=== PATIENT | male | born 1970 | race Caucasian/White ===

== ENCOUNTER 2019-01-10 17:06 | Emergency (ER) | payer BC ==
[2019-01-10 17:39] VITALS: BP 136/85; PULSE 98; RESP 18; TEMP 97.5
--- NOTE | 2019-01-10 18:45 | ED ---
General Adult HPI - General Chief complaint: Recheck/Abnormal Lab/Rx Stated complaint: Infection legs/arms Time Seen by Provider: 01/10/19 18:18 Source: patient Mode of arrival: ambulatory Limitations: no limitations - History of Present Illness Initial comments: Patient is a 48-year-old male presenting to the emergency department with chief complaint of a rash. He states approximately 4 months ago he developed a rash on his left calf and went to the primary care who diagnosed with a staph infection based on a wound culture. He was prescribed Bactroban, topical steroid and Bactrim. Patient reports the infection quickly resolved specialist and oral antibiotics. Patient reports sometime after he also developed the same rash which has been gradually spreading throughout his whole body. Patient reports now he has a rash on the left calf back, chest, abdomen bilateral upper extremities. He states initially there was a rash on his genitals however it is since resolved. Patient also reports the rash was on his face but that appears to resolve now too. Patient denies any nausea vomiting fever or chills. He states all his vaccinations are up-to-date. He states the lesions are only itchy and nonpainful nondraining. - Related Data Previous Rx's Medication Instructions Recorded Clotrimazole/Betameth Cream 1 applic TOPICAL BID #1 bottle 01/10/19 [Lotrisone] Mupirocin Calcium 2% Cream 1 applic TOPICAL TID #15 gm 01/10/19 [Bactroban Cream] Sulfamethox-Tmp 800-160Mg [Bactrim 1 each PO Q12HR #20 tab 01/10/19 Ds] Allergies Allergy/AdvReac Type Severity Reaction Status Date / Time No Known Allergies Allergy Verified 01/10/19 17:39 Review of Systems ROS Statement: Those systems with pertinent positive or pertinent negative responses have been documented in the HPI. ROS Other: All systems not noted in ROS Statement are negative. Past Medical History Additional Past Medical History / Comment(s): reynault's, carpal tunnel History of Any Multi-Drug Resistant Organisms: None Reported Past Surgical History: Orthopedic Surgery Past Psychological History: No Psychological Hx Reported Smoking Status: Current every day smoker Past Alcohol Use History: Daily, Heavy Past Drug Use History: None Reported General Exam Limitations: no limitations General appearance: alert, in no apparent distress Head exam: Present: atraumatic, normocephalic, normal inspection Eye exam: Present: normal appearance Pupils: Present: normal accommodation ENT exam: Present: normal exam, mucous membranes moist Neck exam: Present: normal inspection, full ROM Respiratory exam: Present: normal lung sounds bilaterally Cardiovascular Exam: Present: regular rate, normal rhythm, normal heart sounds Extremities exam: Present: normal inspection, full ROM Back exam: Present: normal inspection, full ROM Neurological exam: Present: alert, oriented X3 Psychiatric exam: Present: normal affect, normal mood Skin exam: Present: warm, dry, intact, normal color, rash (Papular rash with mild surrounding erythema and excoriations. No drainage. No cellulitic changes.) Course Vital Signs 01/10/19 17:35 Temperature 97.5 F L Pulse Rate 98 Respiratory 18 Rate Blood Pressure 136/85 O2 Sat by Pulse 98 Oximetry Medical Decision Making - Medical Decision Making Patient is a 48-year-old male presenting to the emergency department with a chief complaint of a rash. Based on physical examination this appears to be a sporadic papular rash with excoriations on multiple places throughout the body. No cellulitic changes or drainage noted. Considering the patient responded well to Bactrim last time he will be treated again. Patient also given a prescription for Bactroban and topical steroid. Patient advised to follow-up with dermatology considering this is a recurrent issue. Strict return parameters were thoroughly discussed with patient was understanding and agreeable. Vital stable. No fevers night sweats or chills. Case discussed with physician. Disposition Clinical Impression: Staphylococcal infection of skin Disposition: HOME SELF-CARE Condition: Stable Instructions (If sedation given, give patient instructions): MRSA (Methicillin- Resistant Staphylococcus Aureus) (ED) Prescriptions: Sulfamethox-Tmp 800-160Mg [Bactrim Ds] 1 each PO Q12HR #20 tab Mupirocin Calcium 2% Cream [Bactroban Cream] 1 applic TOPICAL TID #15 gm Clotrimazole/Betameth Cream [Lotrisone] 1 applic TOPICAL BID #1 bottle Is patient prescribed a controlled substance at d/c from ED?: No Referrals: Gema Jeffers DO [Primary Care Provider] - 1-2 days Time of Disposition: 18:54
== END 2019-01-10 19:06 | disposition home or self-care (01) ==
LOC: EC 17:06
DX: L08.9 Local infection of the skin and subcutaneous tissue, unspecified (principal); B95.8 Unspecified staphylococcus as the cause of diseases classified elsewhere; F17.200 Nicotine dependence, unspecified, uncomplicated
CPT/HCPCS: 99283

== ENCOUNTER 2019-06-15 18:47 | Emergency (ER) | payer BC, OTHER ==
[2019-06-15 18:56] VITALS: RESP 18; TEMP 98.8
--- NOTE | 2019-06-15 19:05 | ED ---
Extremity Problem HPI - General Source: patient, EMS Mode of arrival: EMS <Fabio Angulo - Last Filed: 06/15/19 19:44> <Sebastian Reese - Last Filed: 06/15/19 20:45> - General Chief complaint: Extremity Problem,Nontraumatic Stated complaint: Generalized pain Time Seen by Provider: 06/15/19 18:50 - History of Present Illness Initial comments: Patient is a 48-year-old male with history of alcohol abuse presenting to the emergency department with a chief complaint of pain. Patient states he typically drinks about 60 beers daily. States today he only had one beer and one mixed drink. Patient reports today she "fell on his butt twice". Denies any head trauma or loss of consciousness at time of incident. States about 3 months ago he suffered an ankle sprain with right ankle and since has developed pain in the region along with numbness. Subsequently he developed left shoulder pain and states "she can't fully move the shoulder due to a rotator cuff tear". Does report occasional left arm numbness states that has been present for the past 3 months as well. Does report occasional diarrhea and vomiting. Denies any neck pain or headaches. (Fabio Angulo) - Related Data Home Medications Medication Instructions Recorded Confirmed Acetaminophen/Diphenhydramine 2 tab PO HS 06/15/19 06/15/19 [Tylenol PM 500-25mg] Allergies Allergy/AdvReac Type Severity Reaction Status Date / Time No Known Allergies Allergy Verified 06/15/19 20:29 Review of Systems ROS Other: All systems not noted in ROS Statement are negative. <Fabio Angulo - Last Filed: 06/15/19 19:44> ROS Other: All systems not noted in ROS Statement are negative. <Sbeastian Reese - Last Filed: 06/15/19 20:45> ROS Statement: Those systems with pertinent positive or pertinent negative responses have been documented in the HPI. Past Medical History Additional Past Medical History / Comment(s): reynclaudia's, carpal tunnel History of Any Multi-Drug Resistant Organisms: None Reported Past Surgical History: Orthopedic Surgery Past Psychological History: No Psychological Hx Reported Smoking Status: Current every day smoker Past Alcohol Use History: Daily, Heavy Past Drug Use History: None Reported <Fabio Angulo - Last Filed: 06/15/19 19:44> General Exam Limitations: no limitations General appearance: alert, in no apparent distress Head exam: Present: atraumatic, normocephalic, normal inspection Eye exam: Present: normal appearance, PERRL, EOMI Pupils: Present: normal accommodation ENT exam: Present: normal exam, normal oropharynx, mucous membranes moist, TM's normal bilaterally, normal external ear exam Neck exam: Present: normal inspection, full ROM. Absent: tenderness Respiratory exam: Present: normal lung sounds bilaterally. Absent: respiratory distress, wheezes, rales Cardiovascular Exam: Present: regular rate, normal rhythm, normal heart sounds Extremities exam: Present: normal inspection, normal capillary refill, other (+2 ulnar and radial pulses bilaterally.). Absent: full ROM (Limited active range of motion in the left shoulder) Back exam: Present: normal inspection, full ROM Neurological exam: Present: alert, oriented X3 Psychiatric exam: Present: normal affect, normal mood Skin exam: Present: warm, dry, intact, normal color <Fabio Angulo - Last Filed: 06/15/19 19:44> Course Vital Signs 06/15/19 18:50 Temperature 98.8 F Pulse Rate 100 Respiratory 18 Rate Blood Pressure 129/92 O2 Sat by Pulse 93 L Oximetry Medical Decision Making - Lab Data Result diagrams: 06/15/19 19:35 <Fabio Angulo - Last Filed: 06/15/19 19:44> - Lab Data Result diagrams: 06/15/19 19:35 06/15/19 19:35 <Sebastian Reese - Last Filed: 06/15/19 20:45> - Medical Decision Making 48-year-old male presenting with alcohol intoxication, chronic orthopedic complaints including greater than 1 month of left shoulder pain. He states he did fall today but did not injure this left shoulder. X-ray confirming a anterior shoulder dislocation. Again patient questioned about the length of his symptoms his left shoulder and stating that this is been present for greater than 1 month may be as much as 2 months. I did discuss case with Dr. Roger ziegler for orthopedics. Given the chronic nature of this dislocation patient will likely require a operative reduction. He recommends computed tomography scan of the shoulder which will be obtained in the emergency department, sling, and orthopedic follow-up tomorrow. Patient has a very high alcohol but he is clinically sober. He has a ride and is eager for discharge. I did offer admission for reevaluation when he is sober, as well as orthopedic consultation and the patient is declining. Patient not driving, he has a ride. (Sebastian Reese) - Lab Data Lab Results 06/15/19 06/15/19 Range/Units 19:35 19:35 WBC 7.7 (3.8-10.6) k/uL RBC 4.48 (4.30-5.90) m/uL Hgb 15.6 (13.0-17.5) gm/dL Hct 45.7 (39.0-53.0) % MCV 102.0 H (80.0-100.0) fL MCH 34.9 (25.0-35.0) pg MCHC 34.2 (31.0-37.0) g/dL RDW 12.6 (11.5-15.5) % Plt Count 218 (150-450) k/uL Neutrophils % 71 % Lymphocytes % 16 % Monocytes % 9 % Eosinophils % 1 % Basophils % 0 % Neutrophils # 5.4 (1.3-7.7) k/uL Lymphocytes # 1.2 (1.0-4.8) k/uL Monocytes # 0.7 (0-1.0) k/uL Eosinophils # 0.1 (0-0.7) k/uL Basophils # 0.0 (0-0.2) k/uL Sodium 139 (137-145) mmol/L Potassium 4.3 (3.5-5.1) mmol/L Chloride 99 (98-107) mmol/L Carbon Dioxide 21 L (22-30) mmol/L Anion Gap 19 mmol/L BUN 6 L (9-20) mg/dL Creatinine 0.65 L (0.66-1.25) mg/dL Est GFR (CKD-EPI)AfAm >90 (>60 ml/min/1.73 sqM) Est GFR (CKD-EPI)NonAf >90 (>60 ml/min/1.73 sqM) Glucose 116 H (74-99) mg/dL Calcium 10.5 H (8.4-10.2) mg/dL Total Bilirubin 0.7 (0.2-1.3) mg/dL AST 520 H (17-59) U/L ALT 327 H (4-49) U/L Alkaline Phosphatase 122 (38-126) U/L Total Protein 8.5 H (6.3-8.2) g/dL Albumin 5.0 (3.5-5.0) g/dL Serum Alcohol 412 H* mg/dL Disposition <Fabio Angulo - Last Filed: 06/15/19 19:44> Is patient prescribed a controlled substance at d/c from ED?: No Time of Disposition: 20:44 <Sebastian Reese - Last Filed: 06/15/19 20:45> Clinical Impression: Chronic dislocation of left shoulder, Alcohol abuse Disposition: HOME SELF-CARE Condition: Fair Instructions (If sedation given, give patient instructions): Shoulder Dislocation (ED), Abuse of Alcohol (ED) Additional Instructions: [facility]. Referrals: Gema Jeffers DO [Primary Care Provider] - 1-2 days Tyree Hassan DO [Doctor of Osteopathic Medicine] - 1-2 days
[2019-06-15 19:41] LABS: Basophils % (A) 0 %; Eosinophils # (A) 0.1 k/uL (0-0.7); Eosinophils % (A) 1 %; HCT 45.7 % (39.0-53.0); HGB 15.6 gm/dL (13.0-17.5); Lymphocytes # (A) 1.2 k/uL (1.0-4.8); Lymphocytes % (A) 16 %; MCH 34.9 pg (25.0-35.0); MCHC 34.2 g/dL (31.0-37.0); Monocytes # (A) 0.7 k/uL (0-1.0); Monocytes % (A) 9 %; Neutrophils # (A) 5.4 k/uL (1.3-7.7); Neutrophils % (A) 71 %; Platelet Count 218 k/uL (150-450); RBC 4.48 m/uL (4.30-5.90); RDW 12.6 % (11.5-15.5); WBC 7.7 k/uL (3.8-10.6)
[2019-06-15 19:50] LABS: ALT 327 U/L (4-49); AST 520 U/L (17-59); African American GFR (CKD) >90 (>60 ml/min/1.73 sqM); Alkaline Phosphatase 122 U/L (38-126); Anion Gap 19 mmol/L; Blood Urea Nitrogen 6 mg/dL (9-20); Calcium 10.5 mg/dL (8.4-10.2); Carbon Dioxide 21 mmol/L (22-30); Chloride 99 mmol/L (98-107); Glucose 116 mg/dL (74-99); Non-African American GFR(CKD) >90 (>60 ml/min/1.73 sqM); Potassium 4.3 mmol/L (3.5-5.1); Sodium 139 mmol/L (137-145); Total Bilirubin 0.7 mg/dL (0.2-1.3); Total Protein 8.5 g/dL (6.3-8.2)
[2019-06-15 20:00] LABS: Alcohol 412 mg/dL
[2019-06-15] MEDS ORDERED: MORPHINE SULFATE 4 MG/0.8 ML SYRINGE (INJ) IVP STA (20:24)
[2019-06-15] MEDS ORDERED: MORPHINE SULFATE 4 MG/ML SYRINGE IVP STA (20:29)
--- NOTE | 2019-06-15 20:31 | XR ---
Left shoulder HISTORY: Trauma and pain 3 views of left shoulder There is an anterior left shoulder dislocation present. Left lung apex as visualized is normal. No ev ident pneumothorax or pleural effusion. Bone mineralization is maintained. No evident fracture. IMPRESSION: Anterior shoulder dislocation.
[2019-06-15] MEDS: KETOROLAC 30 MG/ML 1 ML VIAL IVP STA ×2 (20:44→20:45)
--- NOTE | 2019-06-15 20:58 | CT ---
EXAMINATION TYPE: CT shoulder LT wo con DATE OF EXAM: 06/15/2019 COMPARISON: Plain film same date HISTORY: left shoulder pain following fall CT DLP: 421.1 mGycm Automated exposure control for dose reduction was used. Helical imaging through the shoulder. 3-dimen sional reconstructions performed. FINDINGS: Findings correspond with plain film. There is anterior left shoulder dislocation with inferior and an terior displacement, Hill-Sachs deformity is noted at the posterior aspect of the humeral head. No ev ident fracture. There is a shoulder joint effusion. IMPRESSION: ANTERIOR SHOULDER DISLOCATION.
[2019-06-15 20:59] VITALS: BP 142/94; PULSE 98
== END 2019-06-15 21:00 | disposition home or self-care (01) ==
LOC: EC 18:47
DX: M24.412 Recurrent dislocation, left shoulder (principal); F10.10 Alcohol abuse, uncomplicated; F17.200 Nicotine dependence, unspecified, uncomplicated
CPT/HCPCS: 36415; 80053; 85025; 73030; 73200; 99284; 96374; G0480; J1885; 80320

== ENCOUNTER 2019-11-13 17:47 | Inpatient (IN) | payer OTHER ==
[2019-11-13] MEDS ORDERED: SODIUM CHLORIDE 0.9% 1,000 ML IV STA (18:14)
[2019-11-13] MEDS ORDERED: DIAZEPAM 5 MG/ML 2 ML INJ IVP STA (18:26)
[2019-11-13] MEDS ORDERED: LORazepam 2 MG/ML INJ IV STA ×2 (18:26→20:25)
--- NOTE | 2019-11-13 18:28 | ED ---
Seizure HPI - General Chief Complaint: Seizure Stated Complaint: Altered Status Time Seen by Provider: 11/13/19 18:12 Source: EMS, RN notes reviewed, old records reviewed Mode of arrival: EMS Limitations: no limitations - History of Present Illness Initial Comments: This is a 48-year-old male to the ER for evaluation patient presenting for evaluation of seizure with history of seizure recurrent seizures. Patient denies any recent drug or alcohol abuse. No significant headaches currently. No recent travel history or sick contacts. No change in medications. Patient was never been on seizure medication Erycette a prior neurological evaluation MD Complaint: seizure -: minutes(s) Description of Episode: loss of consciousness, tonic-clonic movement -: second(s) Witnessed: no Seizure History: known seizure disorder, history of withdrawal seizures Place: home Possible Precipitating Event: none Treatments Prior to Arrival: none - Related Data Home Medications Medication Instructions Recorded Confirmed No Known Home Medications 11/13/19 11/13/19 Allergies Allergy/AdvReac Type Severity Reaction Status Date / Time No Known Allergies Allergy Verified 11/13/19 19:28 Review of Systems ROS Statement: Those systems with pertinent positive or pertinent negative responses have been documented in the HPI. ROS Other: All systems not noted in ROS Statement are negative. Past Medical History Additional Past Medical History / Comment(s): reynault's, carpal tunnel History of Any Multi-Drug Resistant Organisms: MRSA Date of last positivie culture/infection: 2019 Past Surgical History: Orthopedic Surgery Past Psychological History: No Psychological Hx Reported Smoking Status: Current some day smoker Past Alcohol Use History: Occasional Past Drug Use History: None Reported General Exam Limitations: altered mental status General appearance: alert, anxious, in distress Head exam: Present: atraumatic, normocephalic, normal inspection Eye exam: Present: normal appearance, PERRL, EOMI. Absent: scleral icterus, conjunctival injection, periorbital swelling ENT exam: Present: normal exam, mucous membranes moist Neck exam: Present: normal inspection. Absent: tenderness, meningismus, lymphadenopathy Respiratory exam: Present: normal lung sounds bilaterally. Absent: respiratory distress, wheezes, rales, rhonchi, stridor Cardiovascular Exam: Present: regular rate, normal rhythm, normal heart sounds. Absent: systolic murmur, diastolic murmur, rubs, gallop, clicks GI/Abdominal exam: Present: soft, normal bowel sounds. Absent: distended, tenderness, guarding, rebound, rigid Extremities exam: Present: normal inspection, full ROM, normal capillary refill. Absent: tenderness, pedal edema, joint swelling, calf tenderness Back exam: Present: normal inspection Neurological exam: Present: alert, oriented X3, CN II-XII intact Psychiatric exam: Present: normal affect, normal mood Skin exam: Present: warm, dry, intact, normal color. Absent: rash Course Vital Signs 11/13/19 11/13/19 17:58 19:34 Temperature 98.6 F Pulse Rate 79 69 Respiratory 16 16 Rate Blood Pressure 152/101 150/105 O2 Sat by Pulse 98 98 Oximetry - Reevaluation(s) Reevaluation #1: 11/13/19 20:00 Medical record is reviewed 11/13/19 20:00 Area visits are reviewed Reevaluation #2: 11/13/19 20:00 No recurrent seizure-like activity here in the ER Reevaluation #3: 11/13/19 20:00 Patient informed results, questions answered - Consultations Consultation #1: Spoke with Dr. ball agrees to admit this patient Medical Decision Making - Medical Decision Making 48 male DF for evaluation patient has seizure with history of seizures history of alcohol abuse possibly alcohol withdrawal versus other cause of seizure. Patient be admitted for neurology to evaluate - Lab Data Result diagrams: 11/13/19 18:31 11/13/19 18:31 Lab Results 11/13/19 11/13/19 11/13/19 Range/Units 18:31 18:31 18:31 WBC 5.1 (3.8-10.6) k/uL RBC 4.17 L (4.30-5.90) m/uL Hgb 15.2 (13.0-17.5) gm/dL Hct 44.1 (39.0-53.0) % MCV 105.8 H (80.0-100.0) fL MCH 36.5 H (25.0-35.0) pg MCHC 34.5 (31.0-37.0) g/dL RDW 12.6 (11.5-15.5) % Plt Count 173 (150-450) k/uL Neutrophils % 79 % Lymphocytes % 12 % Monocytes % 7 % Eosinophils % 1 % Basophils % 1 % Neutrophils # 4.0 (1.3-7.7) k/uL Lymphocytes # 0.6 L (1.0-4.8) k/uL Monocytes # 0.4 (0-1.0) k/uL Eosinophils # 0.0 (0-0.7) k/uL Basophils # 0.0 (0-0.2) k/uL Macrocytosis Slight Sodium 135 L (137-145) mmol/L Potassium 3.7 (3.5-5.1) mmol/L Chloride 99 (98-107) mmol/L Carbon Dioxide 27 (22-30) mmol/L Anion Gap 9 mmol/L BUN 9 (9-20) mg/dL Creatinine 0.59 L (0.66-1.25) mg/dL Est GFR (CKD-EPI)AfAm >90 (>60 ml/min/1.73 sqM) Est GFR (CKD-EPI)NonAf >90 (>60 ml/min/1.73 sqM) Glucose 138 H (74-99) mg/dL POC Glucose (mg/dL) (75-99) mg/dL POC Glu Finance Teacher ID Calcium 10.1 (8.4-10.2) mg/dL Phosphorus 1.5 L (2.5-4.5) mg/dL Magnesium 1.9 (1.6-2.3) mg/dL Total Bilirubin 1.2 (0.2-1.3) mg/dL AST 151 H (17-59) U/L ALT 125 H (4-49) U/L Alkaline Phosphatase 89 (38-126) U/L Creatine Kinase 178 H (55-170) U/L Troponin I (0.000-0.034) ng/mL Total Protein 8.0 (6.3-8.2) g/dL Albumin 4.8 (3.5-5.0) g/dL Urine Color Yellow Urine Appearance Clear (Clear) Urine pH 6.5 (5.0-8.0) Ur Specific Mays 1.018 (1.001-1.035) Urine Protein 1+ H (Negative) Urine Glucose (UA) 1+ H (Negative) Urine Ketones 1+ H (Negative) Urine Blood Small H (Negative) Urine Nitrite Negative (Negative) Urine Bilirubin Negative (Negative) Urine Urobilinogen <2.0 (<2.0) mg/dL Ur Leukocyte Esterase Negative (Negative) Urine RBC <1 (0-5) /hpf Urine WBC 1 (0-5) /hpf Hyaline Casts 3 H (0-2) /lpf Urine Mucus Rare H (None) /hpf Serum Alcohol <10 mg/dL 11/13/19 11/13/19 Range/Units 18:31 18:42 WBC (3.8-10.6) k/uL RBC (4.30-5.90) m/uL Hgb (13.0-17.5) gm/dL Hct (39.0-53.0) % MCV (80.0-100.0) fL MCH (25.0-35.0) pg MCHC (31.0-37.0) g/dL RDW (11.5-15.5) % Plt Count (150-450) k/uL Neutrophils % % Lymphocytes % % Monocytes % % Eosinophils % % Basophils % % Neutrophils # (1.3-7.7) k/uL Lymphocytes # (1.0-4.8) k/uL Monocytes # (0-1.0) k/uL Eosinophils # (0-0.7) k/uL Basophils # (0-0.2) k/uL Macrocytosis Sodium (137-145) mmol/L Potassium (3.5-5.1) mmol/L Chloride (98-107) mmol/L Carbon Dioxide (22-30) mmol/L Anion Gap mmol/L BUN (9-20) mg/dL Creatinine (0.66-1.25) mg/dL Est GFR (CKD-EPI)AfAm (>60 ml/min/1.73 sqM) Est GFR (CKD-EPI)NonAf (>60 ml/min/1.73 sqM) Glucose (74-99) mg/dL POC Glucose (mg/dL) 126 H (75-99) mg/dL POC Glu Finance Teacher ID Maite Luther Calcium (8.4-10.2) mg/dL Phosphorus (2.5-4.5) mg/dL Magnesium (1.6-2.3) mg/dL Total Bilirubin (0.2-1.3) mg/dL AST (17-59) U/L ALT (4-49) U/L Alkaline Phosphatase (38-126) U/L Creatine Kinase (55-170) U/L Troponin I <0.012 (0.000-0.034) ng/mL Total Protein (6.3-8.2) g/dL Albumin (3.5-5.0) g/dL Urine Color Urine Appearance (Clear) Urine pH (5.0-8.0) Ur Specific Mays (1.001-1.035) Urine Protein (Negative) Urine Glucose (UA) (Negative) Urine Ketones (Negative) Urine Blood (Negative) Urine Nitrite (Negative) Urine Bilirubin (Negative) Urine Urobilinogen (<2.0) mg/dL Ur Leukocyte Esterase (Negative) Urine RBC (0-5) /hpf Urine WBC (0-5) /hpf Hyaline Casts (0-2) /lpf Urine Mucus (None) /hpf Serum Alcohol mg/dL - EKG Data -: EKG Interpreted by Me (EKG is sinus rhythm 71 [place] 184 QRS 90 QTC 408) Critical Care Time Critical Care Time: Yes Total Critical Care Time: 31 Disposition Clinical Impression: Generalized seizure, Epileptic seizure, generalized, Alcohol abuse, Delirium tremens Disposition: ADMITTED IP TO THIS [facility] Condition: Fair Referrals: Gema Jeffers DO [Primary Care Provider] - 1-2 days
[2019-11-13 18:43] LABS: Glucose,Whole Blood 126 mg/dL (75-99)
[2019-11-13 19:06] LABS: Basophils % (A) 1 %; Eosinophils % (A) 1 %; HCT 44.1 % (39.0-53.0); HGB 15.2 gm/dL (13.0-17.5); Lymphocytes # (A) 0.6 k/uL (1.0-4.8); Lymphocytes % (A) 12 %; MCH 36.5 pg (25.0-35.0); MCHC 34.5 g/dL (31.0-37.0); MCV 105.8 fL (80.0-100.0); Macrocytosis Slight; Mean Platelet Volume 8.5; Monocytes # (A) 0.4 k/uL (0-1.0); Monocytes % (A) 7 %; Neutrophils % (A) 79 %; Platelet Count 173 k/uL (150-450); RBC 4.17 m/uL (4.30-5.90); RDW 12.6 % (11.5-15.5); WBC 5.1 k/uL (3.8-10.6)
[2019-11-13 19:12] LABS: Appearance,Urine Clear (Clear); Bilirubin,Urine Negative (Negative); Blood,Urine Small (Negative); Color,Urine Yellow; Glucose,Urine (UA) 1+ (Negative); Hyaline Casts,Urine 3 /lpf (0-2); Ketones,Urine 1+ (Negative); Leukocyte Esterase,Urine Negative (Negative); Mucus,Urine Rare /hpf; Nitrite,Urine Negative (Negative); PH, Urine 6.5 (5.0-8.0); Protein,Urine 1+ (Negative); RBC,Urine <1 /hpf (0-5); Specific Gravity,Urine 1.018 (1.001-1.035); Urobilinogen,Urine <2.0 mg/dL (<2.0); WBC,Urine 1 /hpf (0-5)
[2019-11-13 19:16] LABS: ALT 125 U/L (4-49); AST 151 U/L (17-59); African American GFR (CKD) >90 (>60 ml/min/1.73 sqM); Albumin 4.8 g/dL (3.5-5.0); Alcohol <10 mg/dL; Alkaline Phosphatase 89 U/L (38-126); Anion Gap 9 mmol/L; Blood Urea Nitrogen 9 mg/dL (9-20); Calcium 10.1 mg/dL (8.4-10.2); Carbon Dioxide 27 mmol/L (22-30); Chloride 99 mmol/L (98-107); Creatine Kinase 178 U/L (55-170); Glucose 138 mg/dL (74-99); Magnesium 1.9 mg/dL (1.6-2.3); Non-African American GFR(CKD) >90 (>60 ml/min/1.73 sqM); Phosphorus 1.5 mg/dL (2.5-4.5); Potassium 3.7 mmol/L (3.5-5.1); Sodium 135 mmol/L (137-145); Total Bilirubin 1.2 mg/dL (0.2-1.3)
[2019-11-13] MEDS ORDERED: LORazepam 2 MG/ML INJ IV PRN ×3 (19:56)
[2019-11-13] MEDS ORDERED: THIAMINE 100 MG/ML 2 ML VIAL IM STA (19:56)
[2019-11-13] MEDS: SODIUM CHLORIDE 0.9% 1,000 ML IV SCH (21:45)
--- NOTE | 2019-11-13 23:54 | CT ---
EXAMINATION TYPE: CT brain wo con DATE OF EXAM: 11/13/2019 COMPARISON: None HISTORY: seizure, fell and hit head CT DLP: 1098.4 mGycm Automated exposure control for dose reduction was used. The ventricles and sulci appear normal. There is no mass effect nor midline shift. There is no sign o f intracranial hemorrhage. The calvarium is intact. There is no evidence of cerebral edema. There is prominent Virchow-Raulito space on the right side. IMPRESSION: Negative CT scan of the brain.
[2019-11-14] MEDS: SODIUM CHLORIDE 0.9% 1,000 ML IV SCH (06:18)
[2019-11-14] MEDS ORDERED: THIAMINE 100 MG TAB PO SCH ×2 (07:30→09:00)
[2019-11-14 08:56] VITALS: RESP 16
--- NOTE | 2019-11-14 09:22 | P.CNNES ---
History of Present Illness Consult date: 11/14/19 Requesting physician: Salvador Veras Reason for Consult: seizure History of Present Illness: This is a 48-year-old right-handed gentleman with medical history alcohol abuse who presented emergency department on 11/13/2019 for seizure-like activity. Per the patient he stated that yesterday in the afternoon around 4 PM he was with the his a children as well as girlfriend and he was walking from the bedroom to the kitchen and all of a sudden the he fell on the ground loss consciousness. He was told that he was having shaking of his extremities and that was foaming around his mouth. He denies any urinary bowel incontinence. He denies feeling that his tongue was sore after the episode. He stated that prior to the episode that the he didn't have any warning signs. He denies of any chest pain, any feeling lightheadedness, any visual disturbance prior to the episode. He said in total he was on the floor for 10 minutes but unsure duration of the jerking of extremities. He stated that he never had any jerking episodes before foaming around his mouth. He said that his last drink was about 2 weeks ago. He said that he does have history of heavy alcohol use for couple years but the last time that he drank heavily was on 06/15/2019. Prior to that he was drinking a fifth of vodka daily. She denies of any fever, any focal weakness, any visual disturbance. Patient is not on any antiepileptic drugs. He had 2 prior episodes of passing out. The last episode was about 1-1/2 and prior to that was about 8 years ago. There is no jerking of any extremities or foaming around the mouth or urinary or bowel incontinence with these episodes. He stated that he thinks about one half weeks ago he was in the car accompanied with his mother and then he stood up and walked couple steps then fell to the ground. He said that he remembers episode and no LOC. He didn't have any warning signs prior to episode. This time the patient was on Wellbutrin for about 2 months but he felt that they were was making him groggy so he stopped taking it and the last dose was about 1-1/2 weeks ago. While the episode about 8 years ago he said that he had some tunnel vision and then the loss consciousness for minutes. He denies any history of seizures. history as the he was a product of the term, vaginal delivery and no complication. No family history of seizures. The patient stated that he has right foot drop since June 2019. He said that he crosses his legs a lot. He denies of any neck pain or any back pain. Work-up in the hospital consisted of: Initial vital signs were blood pressure of 152/101 with a heart rate of 79. Temperature of 98.6 Fahrenheit oral, respiratory of 16 and the pulse ox of 98% room air. CT of the head which was reported as negative CT of the brain. I personally reviewed the CT of the head and there is no acute ischemia, hemorrhage or any encephalomalacia that was appreciable. EKG was reported as normal sinus rhythm with sinus arrhythmia. Ventricular rate of 71. Septal infarct age undetermined. Abnormal EKG. MCV of 105.8. Sodium 135. AST of 151 and ALTs of 125. Alcohol level was less than 10. Review of Systems Review of system: The 12 point system was reviewed and apparent positive and negative per HPI. Past Medical History Additional Past Medical History / Comment(s): reynault's, carpal tunnel, patient states he used to drink a fifth a day with his friend but he stopped about two weeks ago, patient also states he has had a seizure in the past History of Any Multi-Drug Resistant Organisms: MRSA Date of last positivie culture/infection: 2018 MDRO Source:: left leg Past Surgical History: Orthopedic Surgery Past Psychological History: No Psychological Hx Reported Smoking Status: Current some day smoker Past Alcohol Use History: Occasional Past Drug Use History: None Reported Medications and Allergies Home Medications Medication Instructions Recorded Confirmed Type Cyanocobalamin [Vitamin B-12] 1,000 mcg PO DAILY #30 tab 11/14/19 Rx Folic Acid 1 mg PO DAILY #30 tab 11/14/19 Rx Thiamine [Vitamin B-1] 100 mg PO DAILY #30 tab 11/14/19 Rx Allergies Allergy/AdvReac Type Severity Reaction Status Date / Time No Known Allergies Allergy Verified 11/13/19 19:28 Physical Examination - Vital Signs Vital Signs: Vital Signs Temp Pulse Pulse Resp BP BP Pulse Ox 11/14/19 03:56 68 18 11/14/19 03:54 98.4 F 68 18 124/82 99 11/13/19 23:53 60 18 11/13/19 23:47 98.0 F 60 18 135/85 97 11/13/19 22:03 98.3 F 67 18 154/99 100 11/13/19 22:00 60 18 11/13/19 21:47 81 16 105/92 99 11/13/19 21:20 69 19 139/96 11/13/19 21:15 65 19 148/96 98 11/13/19 21:00 67 139/98 98 11/13/19 20:45 140/102 98 11/13/19 20:40 140/102 98 11/13/19 19:34 69 16 150/105 98 11/13/19 17:58 98.6 F 79 16 152/101 98 Intake and Output 11/13/19 11/13/19 11/14/19 14:59 22:59 06:59 Intake Total 900 Balance 900 Intake: Intake, IV Titration 900 Amount Sodium Chloride 0.9% 1, 900 000 ml @ 100 mls/hr IV . Q10H [facility] Rx#:[id number] Other: Voiding Method Toilet Toilet # Voids 1 Weight 72.03 kg 72.1 kg GENERAL: The patient is lying in bed and is not in acute distress. He seems somewhat tremulous. CHEST: The heart rate is regular rate rhythm. No murmurs to auscultation. No carotid bruit bilaterally. LUNG: Clear to auscultation bilaterally no wheezing noted throughout. Not labored breathing. ABDOMEN/GI: Bowel sounds present in all 4 quadrants. No tenderness to palpation throughout. NEUROLOGICAL: Higher mental function: The patient is awake, alert, oriented to self, place and time. Patient is following commands. No aphasia and no neglect. Cranial nerves: The pupils are round, equal (5mm) and reactive to light and accommodation. Visual almanzar are full to confrontation throughout. Extraocular movement is intact no nystagmus is noted. Facial sensation is normal to touch throughout. The facial strength is normal throughout. Hearing is normal bilaterally to hand rub. Tongue is midline and moved [id number] without any difficulty. No dysarthria is noted. Tongue Has tongue bite on lateral side of tongue. Shoulder shrug is normal bilaterally. Motor: Gait: Right steppage gait over the right foot. The strength is right ankle dorsiflexion and eversion is 4+. Right toe dorsiflexion is 0. Otherwise 5 over 5 throughout. Normal tone and bulk. Cerebellum: Normal finger to nose bilaterally. Sensation: Sensation is decrease over the right foot to touch otherwise normal to touch throughout. Reflexes (right/left): 2+ throughout except brachioradialis 3+ bilaterally. Plantars are downgoing bilaterally. Results Urinalysis is negative for UTI - Laboratory Findings CBC and BMP: 11/13/19 18:31 11/13/19 18:31 Abnormal Lab Findings: Abnormal Labs 11/13/19 11/13/19 11/13/19 18:31 18:31 18:31 RBC 4.17 L MCV 105.8 H MCH 36.5 H Lymphocytes # 0.6 L Sodium 135 L Creatinine 0.59 L Glucose 138 H POC Glucose (mg/dL) Phosphorus 1.5 L AST 151 H ALT 125 H Creatine Kinase 178 H Urine Protein 1+ H Urine Glucose (UA) 1+ H Urine Ketones 1+ H Urine Blood Small H Hyaline Casts 3 H Urine Mucus Rare H 11/13/19 18:42 RBC MCV MCH Lymphocytes # Sodium Creatinine Glucose POC Glucose (mg/dL) 126 H Phosphorus AST ALT Creatine Kinase Urine Protein Urine Glucose (UA) Urine Ketones Urine Blood Hyaline Casts Urine Mucus Assessment and Plan Assessment: New onset seizure Prior Sycopal episodes 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 We'll not place the patient on the antiepileptic drugs since he just had one clear seizure episode the other 2 episodes seem syncope. Ordered MRI of the brain seizure protocol Recommend that 2-D echo Recommend orthostatic Recommend cardiology consult Place the patient on thiamine 100 mg daily. I will order vitamin B-12 and folate. Because of the patient's significant alcohol use, I recommend placing the patient on folic acid (1mg) as well as vitamin B12 (1000mcg) especially with a macrocytosis. Regarding the patient likely right peroneal neuropathy recommend EMG with nerve conduction as an outpatient. Recommend placing the patient on AFO. Patient is on CIWA protocol and will defer management to primary team. Patient was counseled on Tobacco cessation and to avoid any further alcohol use. For the consultation. Truman Christensen M.D. Neuro-hospitalist Time with Patient: Greater than 30
[2019-11-14] MEDS ORDERED: CYANOCOBALAMIN 500 MCG TAB PO SCH (09:30)
[2019-11-14 11:36] LABS: Folate, Serum 12.1 ng/mL
--- NOTE | 2019-11-14 13:04 | ECHOF ---
Referral Reason:syncope MEASUREMENTS -------- HEIGHT: 177.8 cm WEIGHT: 71.7 kg BP: 137/93 RVIDd: 2.9 cm (< 3.3) IVSd: 1.2 cm (0.6 - 1.1) LVIDd: 4.8 cm (3.9 - 5.3) LVPWd: 1.2 cm (0.6 - 1.1) IVSs: 1.7 cm LVIDs: 3.1 cm LVPWs: 1.6 cm LA Diam: 3.0 cm (2.7 - 3.8) LAESV Index (A-L): 33.86 ml/m Ao Diam: 3.7 cm (2.0 - 3.7) AV Cusp: 2.4 cm (1.5 - 2.6) MV EXCURSION: 21.714 mm (> 18.000) MV EF SLOPE: 137 mm/s (70 - 150) EPSS: 0.4 cm MV E Alfredo: 1.00 m/s MV DecT: 167 ms MV A Alfredo: 0.51 m/s MV E/A Ratio: 1.95 RAP: 5.00 mmHg RVSP: 22.12 mmHg FINDINGS -------- Sinus rhythm. This was a technically adequate study. The left ventricular size is normal. There is borderline concentric left ventricular hypertrophy. Overall left ventricular systolic function is normal with, an EF between 60 - 65 %. The right ventricle is normal in size. LA is midly dilated 29-33ml/m2. The right atrium is normal in size. Interatrial and interventricular septum intact. The aortic valve is trileaflet and appears structurally normal. There is trace to mild mitral regurgitation. Mild tricuspid regurgitation present. Right ventricular systolic pressure is normal at < 35 mmHg. Trace/mild (physiologic) pulmonic regurgitation. The aortic root size is normal. IVC Not well visulized. There is no pericardial effusion. CONCLUSIONS -------- 1. The left ventricular size is normal. 2. There is borderline concentric left ventricular hypertrophy. 3. Overall left ventricular systolic function is normal with, an EF between 60 - 65 %. 4. LA is midly dilated 29-33ml/m2. 5. There is trace to mild mitral regurgitation. 6. Mild tricuspid regurgitation present. 7. Trace/mild (physiologic) pulmonic regurgitation. 8. There is no pericardial effusion. [employer] DESK TEAM MEMBER: Sherry Elmore RDCS
--- NOTE | 2019-11-14 13:55 | EEG ---
ELECTROENCEPHALOGRAM REPORT DATE OF SERVICE: 11/14/2019. CLINICAL HISTORY: This is a 48-year-old gentleman with history of alcohol abuse, who had seizure- like activity yesterday. This video EEG was obtained to evaluate for seizure and epileptiform activity. RELEVANT MEDICATION: Ativan. EEG TYPE: A routine 21 channel EEG was performed with video using 10/20 electrode placement system. DESCRIPTION: Wakefulness and drowsiness are only obtained. During wakefulness, there is a posterior dominant rhythm of low to moderate voltage, reactive, well modulated, of 9-10 hertz activity. During drowsiness there is slowing and attenuation of the background activity. There was no physiological stage 2 sleep seen. INTERICTAL AND ICTAL: None. 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 Hyperventilation was not performed because of the patient clinical history. CLINICAL INTERPRETATION: This is a normal routine EEG. There is no focal slowing, epileptiform activity or seizures seen during the study. Clinical correlation is recommended. MMCOLETTE / IJN: [id number] / [facility]ITALTerrence
--- NOTE | 2019-11-14 14:03 | MR ---
MR brain without contrast HISTORY: Seizure Multiplanar multisequence imaging obtained through the brain Correlation CT brain 11/13/2019 There is no restricted diffusion. There is no hemorrhage or hydrocephalus. 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 The cerebellopontine angles, corpus callosum, p ituitary, cervical medullary junction are normal. Brain signal is maintained. Mild mucosal disease pr esent within the maxillary sinus, ethmoid air cells. There are normal vascular flow voids. The orbits are symmetric. IMPRESSION: No acute brain abnormality. Sinus disease.
--- NOTE | 2019-11-14 14:15 | P.CRDCN ---
History of Present Illness Consult date: 11/14/19 History of present illness: CHIEF COMPLAINT: Syncope HISTORY OF PRESENT ILLNESS: This is a 48-year old male with a past medical history significant for nicotine dependence and alcohol use. 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 We have been asked to see the patient in consultation for syncope. Patient examined at the bedside with Dr. Miranda. Patient states he was walking in his house when he just collapsed. His mom is at the bedside and provides additional history. She reports that a neighbor saw the patient after he fell and was having seizure activity and was foaming at the mouth. Patient was confused for approximately 20 minutes after the incident. Patient reports a history of syncope and states this is the second time but it has happened in the last 2 weeks. He reports an episode 9 years ago and another episode about 20 years ago. He states he usually gets tunnel vision prior to passing out but this time he did not have any warning signs before it happened. Patient denies chest pain or pressure. He denies shortness of breath. He reports occasionally feeling his heart beating fast with exertion. Mother at the bedside gives history of patient's grandfather having a AL in his 40s and patients uncles having CVAs in their 50s. DIAGNOSTICS: EKG reveals sinus rhythm Laboratory data: WBC 5.1. Hemoglobin 15.2. Platelet count 173. Sodium 135. Potassium 3.7. BUN 9. Creatinine 0.59. Magnesium 1.9. Troponin negative 1 Current home cardiac medications include none REVIEW OF SYSTEMS: At the time of my exam: CONSTITUTIONAL: Denies fever or chills. HEENT: Denies blurred vision, vision changes, or eye pain. Denies hemoptysis CARDIOVASCULAR: Denies chest pain, orthopnea, PND or palpitations RESPIRATORY: No shortness of breath. GASTROINTESTINAL: Denies abdominal pain. Denies nausea or vomiting. HEMATOLOGIC: Denies bleeding disorders. GENITOURINARY: Denies any blood in urine. SKIN: Denies pruitis. Denies rash. PHYSICAL EXAM: VITAL SIGNS: Reviewed. GENERAL: Well-developed in no acute distress. HEENT: Head is normocephalic. Pupils are equal, round. Sclerae anicteric. Mucous membranes of the mouth are moist. Neck supple. No JVD or thyromegaly LUNGS: Respirations even and unlabored. Lungs essentially clear to auscultation bilaterally. HEART: Regular rate and rhythm. S1 and S2 heard. ABDOMEN: Soft. Nondistended. Nontender. EXTREMITIES: Normal range of motion. No clubbing or cyanosis. Peripheral pulses intact. No lower extremity edema NEUROLOGIC: Awake and alert. Oriented x 3. ASSESSMENT: Syncope Possible seizure History of alcohol abuse PLAN: Obtain 2-D echo to assess cardiac structure and function Patient to wear event monitor at the time of discharge for 30 days to assess for any bradycardia or arrhythmias If no significant abnormalities noted on event monitor, may consider loop recorder Patient to follow up outpatient with Dr. Miranda Nurse practitioner note has been reviewed by physician. Signing provider agrees with the documented findings, assessment, and plan of care. Past Medical History Additional Past Medical History / Comment(s): reynault's, carpal tunnel, patient states he used to drink a fifth a day with his friend but he stopped about two w eeks ago, patient also states he has had a seizure in the past History of Any Multi-Drug Resistant Organisms: MRSA Date of last positivie culture/infection: 2018 MDRO Source:: left leg Past Surgical History: Orthopedic Surgery Past Psychological History: No Psychological Hx Reported Smoking Status: Current some day smoker Past Alcohol Use History: Occasional Past Drug Use History: None Reported Medications and Allergies Home Medications Medication Instructions Recorded Confirmed Type No Known Home Medications 11/13/19 11/13/19 History Allergies Allergy/AdvReac Type Severity Reaction Status Date / Time No Known Allergies Allergy Verified 11/13/19 19:28 Physical Exam Vitals: Vital Signs Temp Pulse Pulse Resp BP BP Pulse Ox 11/14/19 12:29 98.2 F 75 16 156/91 98 11/14/19 08:55 98.1 F 90 16 137/93 99 11/14/19 03:56 68 18 11/14/19 03:54 98.4 F 68 18 124/82 99 11/13/19 23:53 60 18 11/13/19 23:47 98.0 F 60 18 135/85 97 11/13/19 22:03 98.3 F 67 18 154/99 100 11/13/19 22:00 60 18 11/13/19 21:47 81 16 105/92 99 11/13/19 21:20 69 19 139/96 11/13/19 21:15 65 19 148/96 98 11/13/19 21:00 67 139/98 98 10/08/20 20:45 140/102 98 11/13/19 20:40 140/102 98 11/13/19 19:34 69 16 150/105 98 11/13/19 17:58 98.6 F 79 16 152/101 98 Intake and Output 11/13/19 11/14/19 11/14/19 22:59 06:59 14:59 Intake Total 900 240 Balance 900 240 Intake: Intake, IV Titration 900 Amount Sodium Chloride 0.9% 1, 900 000 ml @ 100 mls/hr IV . Q10H [facility] Rx#:[id number] Oral 240 Other: Voiding Method Toilet Toilet Toilet # Voids 1 Weight 72.03 kg 72.1 kg Results 11/13/19 18:31 11/13/19 18:31 Cardiac Enzymes 11/13/19 11/13/19 Range/Units 18:31 18:31 AST 151 H (17-59) U/L Troponin I <0.012 (0.000-0.034) ng/mL CBC 11/13/19 Range/Units 18:31 WBC 5.1 (3.8-10.6) k/uL RBC 4.17 L (4.30-5.90) m/uL Hgb 15.2 (13.0-17.5) gm/dL Hct 44.1 (39.0-53.0) % Plt Count 173 (150-450) k/uL Comprehensive Metabolic Panel 11/13/19 Range/Units 18:31 Sodium 135 L (137-145) mmol/L Potassium 3.7 (3.5-5.1) mmol/L Chloride 99 (98-107) mmol/L Carbon Dioxide 27 (22-30) mmol/L BUN 9 (9-20) mg/dL Creatinine 0.59 L (0.66-1.25) mg/dL Glucose 138 H (74-99) mg/dL Calcium 10.1 (8.4-10.2) mg/dL AST 151 H (17-59) U/L ALT 125 H (4-49) U/L Alkaline Phosphatase 89 (38-126) U/L Total Protein 8.0 (6.3-8.2) g/dL Albumin 4.8 (3.5-5.0) g/dL Current Medications Generic Name Dose Route Start Last Admin Trade Name Freq PRN Reason Stop Dose Admin Cyanocobalamin 1,000 mcg 11/14/19 09:30 11/14/19 10:04 Cyanocobalamin 500 Mcg Tab PO 1,000 mcg DAILY CM Administration Folic Acid 1 mg 11/15/19 09:00 Folic Acid 1 Mg Tab PO DAILY CM Sodium Chloride 1,000 mls @ 100 mls/hr 11/13/19 20:00 11/14/19 06:18 Saline 0.9% IV 100 mls/hr .Q10H CM Administration Lorazepam 1 mg 11/13/19 19:56 Lorazepam 2 Mg/Ml Inj IV Q2HR PRN CIWA 8 or 9 Lorazepam 1 mg 11/13/19 19:56 Lorazepam 2 Mg/Ml Inj IV Q1HR PRN CIWA 10 to 15 Lorazepam 2 mg 11/13/19 19:56 Lorazepam 2 Mg/Ml Inj IV 11/15/19 19:56 Q10M PRN CIWA 16 or higher Thiamine HCl 100 mg 11/14/19 09:00 11/14/19 08:57 Thiamine 100 Mg Tab PO 100 mg DAILY CM Administration Intake and Output 11/13/19 11/14/19 11/14/19 22:59 06:59 14:59 Intake Total 900 240 Balance 900 240 Intake: Intake, IV Titration 900 Amount Sodium Chloride 0.9% 1, 900 000 ml @ 100 mls/hr IV . Q10H [facility] Rx#:[id number] Oral 240 Other: Voiding Method Toilet Toilet Toilet # Voids 1 Weight 72.03 kg 72.1 kg 11/13/19 18:31 11/13/19 18:31
[2019-11-14 16:37] VITALS: BP 138/98; PULSE 77; TEMP 98.8
--- NOTE | 2019-11-14 22:12 | P.HPIM ---
History of Present Illness H&P Date: 11/14/19 Chief Complaint: Shaking all over History of present complaint: This is a 48-year-old patient follows with Dr. Gema Jeffers. Patient has been drinking alcohol for a long time. Recently tried to cut back. He's had seizures apparently from alcohol previously though unclear. Patient was at home. Patient's 2 children 14-year-old and 10-year-old Edilson's and found him laying on the floor shaking all over. Patient is confused for sometime after that. It was witnessed to be a seizure activity. Patient not employed. No fever no chills. No palpitation. Mother at the bedside. Patient to cut back on alcohol. Review of systems: GEN.: Tired EYES: None HEENT: None NECK: None RESPIRATORY: None CARDIOVASCULAR: None GASTROINTESTINAL: None GENITOURINARY: None MUSCULOSKELETAL: None LYMPHATICS: None HEMATOLOGICAL: None PSYCHIATRY: None NEUROLOGICAL: No focal symptoms Past medical history to include: . 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 Alcohol history of prolonged years, now trying to cut back. Smoker. Family history: Reviewed, noncontributory to presentation Physical examination: VITAL SIGNS: 98.6, 79, 16, 152 x 1 01, 98% room air upon presentation GENERAL: BMI 22.8, laying in bed, slightly anxious. EYES: Pupils equal. Conjunctiva normal. HEENT: External appearance of nose and ears normal, oral cavity grossly normal. NECK: JVD not raised; masses not palpable. HEART: First and second heart sounds are normal; no edema. LUNGS: Respiratory rate normal; decreased breath sounds. ABDOMEN: Soft, nontender, liver spleen not palpable, no masses palpable. PSYCH: Alert and oriented x3; mood and affect anxiousl. NEUROLOGICAL: Cranial nerves grossly intact; no facial asymmetry, power and sensation grossly intact. LYMPHATICS: No lymph nodes palpable in the axilla and neck INVESTIGATIONS, reviewed in the clinical context: White count 5.1 hemoglobin 15.2 platelets 173 potassium 3.7 creatinine 0.59 AST 151 ALT 125 phosphorus 1.5 Serum alcohol less than 10 EKG tracing personally reviewed by me-normal sinus rhythm Assessment: -Alcohol related epilepsy -Chronic alcohol use disorder -Chronic nicotine dependence cigarette smoker -Alcoholic hepatitis -Macrocytosis Plan: You will checks were done. Seizure precautions. Neurology was consulted. IV fluids were given. Care was discussed with the patient. Consult about smoking. And alcohol. Past Medical History Additional Past Medical History / Comment(s): reynault's, carpal tunnel, patient states he used to drink a fifth a day with his friend but he stopped about two weeks ago, patient also states he has had a seizure in the past History of Any Multi-Drug Resistant Organisms: MRSA Date of last positivie culture/infection: 2018 MDRO Source:: left leg Past Surgical History: Orthopedic Surgery Past Psychological History: No Psychological Hx Reported Smoking Status: Current some day smoker Past Alcohol Use History: Occasional Past Drug Use History: None Reported Medications and Allergies Home Medications Medication Instructions Recorded Confirmed Type Cyanocobalamin [Vitamin B-12] 1,000 mcg PO DAILY #30 tab 11/14/19 Rx Folic Acid 1 mg PO DAILY #30 tab 11/14/19 Rx Thiamine [Vitamin B-1] 100 mg PO DAILY #30 tab 11/14/19 Rx Allergies Allergy/AdvReac Type Severity Reaction Status Date / Time No Known Allergies Allergy Verified 11/13/19 19:28 Physical Exam Vitals: Vital Signs Temp Pulse Pulse Resp BP BP Pulse Ox 11/14/19 08:55 98.1 F 90 16 137/93 99 11/14/19 03:56 68 18 11/14/19 03:54 98.4 F 68 18 124/82 99 11/13/19 23:53 60 18 11/13/19 23:47 98.0 F 60 18 135/85 97 11/13/19 22:03 98.3 F 67 18 154/99 100 11/13/19 22:00 60 18 11/13/19 21:47 81 16 105/92 99 11/13/19 21:20 69 19 139/96 11/13/19 21:15 65 19 148/96 98 11/13/19 21:00 67 139/98 98 11/13/19 20:45 140/102 98 11/13/19 20:40 140/102 98 11/13/19 19:34 69 16 150/105 98 11/13/19 17:58 98.6 F 79 16 152/101 98 Intake and Output 11/13/19 11/14/19 11/14/19 22:59 06:59 14:59 Intake Total 900 240 Balance 900 240 Intake: Intake, IV Titration 900 Amount Sodium Chloride 0.9% 1, 900 000 ml @ 100 mls/hr IV . Q10H [facility] Rx#:[id number] Oral 240 Other: Voiding Method Toilet Toilet Toilet # Voids 1 Weight 72.03 kg 72.1 kg Results CBC & Chem 7: 11/13/19 18:31 11/13/19 18:31 Labs: Abnormal Lab Results - Last 24 Hours (Table) 11/13/19 11/13/19 11/13/19 Range/Units 18:31 18:31 18:31 RBC 4.17 L (4.30-5.90) m/uL MCV 105.8 H (80.0-100.0) fL MCH 36.5 H (25.0-35.0) pg Lymphocytes # 0.6 L (1.0-4.8) k/uL Sodium 135 L (137-145) mmol/L Creatinine 0.59 L (0.66-1.25) mg/dL Glucose 138 H (74-99) mg/dL POC Glucose (mg/dL) (75-99) mg/dL Phosphorus 1.5 L (2.5-4.5) mg/dL AST 151 H (17-59) U/L ALT 125 H (4-49) U/L Creatine Kinase 178 H (55-170) U/L Urine Protein 1+ H (Negative) Urine Glucose (UA) 1+ H (Negative) Urine Ketones 1+ H (Negative) Urine Blood Small H (Negative) Hyaline Casts 3 H (0-2) /lpf Urine Mucus Rare H (None) /hpf 11/13/19 Range/Units 18:42 RBC (4.30-5.90) m/uL MCV (80.0-100.0) fL MCH (25.0-35.0) pg Lymphocytes # (1.0-4.8) k/uL Sodium (137-145) mmol/L Creatinine (0.66-1.25) mg/dL Glucose (74-99) mg/dL POC Glucose (mg/dL) 126 H (75-99) mg/dL Phosphorus (2.5-4.5) mg/dL AST (17-59) U/L ALT (4-49) U/L Creatine Kinase (55-170) U/L Urine Protein (Negative) Urine Glucose (UA) (Negative) Urine Ketones (Negative) Urine Blood (Negative) Hyaline Casts (0-2) /lpf Urine Mucus (None) /hpf Thrombosis Risk Factor Assmnt - Choose All That Apply Any of the Below Risk Factors Present?: Yes Each Factor Represents 1 point: Age 41-60 years Other Risk Factors: No Other congenital or acquired thrombophilia - If yes, enter type in comment: No Thrombosis Risk Factor Assessment Total Risk Factor Score: 1 Thrombosis Risk Factor Assessment Level: Low Risk
--- NOTE | 2019-11-14 22:14 | P.DS ---
Providers Date of admission: 11/13/19 19:56 Expected date of discharge: 11/14/19 Attending physician: Anupam Mcgrath Consults: 11/13/19 19:57 Consult Physician Routine Consulting Provider: Truman Christensen Consult Reason/Comments: sz Do you want consulting provider notified?: Yes 11/14/19 11:22 Consult Physician Routine Consulting Provider: Barry Miranda Consult Reason/Comments: seizures, r/o heart isssues. Do you want consulting provider notified?: Already Contacted Primary care physician: Gema Jeffers [facility] Course: Chief Complaint: Shaking all over History of present complaint: This is a 48-year-old patient follows with Dr. Gema Jeffers. Patient has been drinking alcohol for a long time. Recently tried to cut back. He's had seizures apparently from alcohol previously though unclear. Patient was at home. Patient's 2 children 14-year-old and 10-year-old Edilson's and found him laying on the floor shaking all over. Patient is confused for sometime after that. It was witnessed to be a seizure activity. Patient not employed. No fever no chills. No palpitation. Mother at the bedside. Patient to cut back on alcohol. Review of systems: GEN.: Tired EYES: None HEENT: None NECK: None RESPIRATORY: None CARDIOVASCULAR: None GASTROINTESTINAL: None GENITOURINARY: None MUSCULOSKELETAL: None LYMPHATICS: None HEMATOLOGICAL: None PSYCHIATRY: None NEUROLOGICAL: No focal symptoms Past medical history to include: . 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 Alcohol history of prolonged years, now trying to cut back. Smoker. Family history: Reviewed, noncontributory to presentation Physical examination: VITAL SIGNS: 98.6, 79, 16, 152 x 1 01, 98% room air upon presentation GENERAL: BMI 22.8, laying in bed, slightly anxious. EYES: Pupils equal. Conjunctiva normal. HEENT: External appearance of nose and ears normal, oral cavity grossly normal. NECK: JVD not raised; masses not palpable. HEART: First and second heart sounds are normal; no edema. LUNGS: Respiratory rate normal; decreased breath sounds. ABDOMEN: Soft, nontender, liver spleen not palpable, no masses palpable. PSYCH: Alert and oriented x3; mood and affect anxiousl. NEUROLOGICAL: Cranial nerves grossly intact; no facial asymmetry, power and sensation grossly intact. LYMPHATICS: No lymph nodes palpable in the axilla and neck INVESTIGATIONS, reviewed in the clinical context: White count 5.1 hemoglobin 15.2 platelets 173 potassium 3.7 creatinine 0.59 AST 151 ALT 125 phosphorus 1.5 Serum alcohol less than 10 EKG tracing personally reviewed by me-normal sinus rhythm Assessment: -Alcohol related epilepsy -Chronic alcohol use disorder -Chronic nicotine dependence cigarette smoker -Alcoholic hepatitis -Macrocytosis Plan: Neuro checks were done. Seizure precautions. Neurology was consulted. IV fluids were given. Care was discussed with the patient. Counselled about smoking and alcohol Patient Condition at Discharge: Stable Plan - Discharge Summary New Discharge Prescriptions: New Folic Acid 1 mg PO DAILY #30 tab Thiamine [Vitamin B-1] 100 mg PO DAILY #30 tab Cyanocobalamin [Vitamin B-12] 1,000 mcg PO DAILY #30 tab Discharge Medication List Cyanocobalamin [Vitamin B-12] 1,000 mcg PO DAILY #30 tab 11/14/19 [Rx] Folic Acid 1 mg PO DAILY #30 tab 11/14/19 [Rx] Thiamine [Vitamin B-1] 100 mg PO DAILY #30 tab 11/14/19 [Rx] Follow up Appointment(s)/Referral(s): [facility] [Provider Group] - 11/17/19 (Show up between 9am-12pm or 1pm-4pm for 30 day event monitor placement) Barry Miranda DO [STAFF PHYSICIAN] - 12/22/19 1:45 pm (Sunday) Gema Jeffers DO [Primary Care Provider] - 1-2 days (Office is closed. Please call to schedule appointment) Truman Banda MD [STAFF PHYSICIAN] - 1 Week (Office is closed. Please call to schedule appointment) Patient Instructions/Handouts: Syncope (DC) Activity/Diet/Wound Care/Special Instructions: No driving until further notice follow-up with neurology. Epilepsy precautions. No alcohol. Discharge Disposition: HOME SELF-CARE
[2019-11-15] MEDS ORDERED: FOLIC ACID 1 MG TAB PO SCH (09:00)
== END 2019-11-14 17:47 | disposition home or self-care (01) | DRG 897 ==
LOC: EC 17:47 → 3SCARD 19:56
PROVIDERS: ADMIT Hospitalist; ATTEND Hospitalist
DX: F10.10 Alcohol abuse, uncomplicated (principal); E87.1 Hypo-osmolality and hyponatremia; G40.409 Other generalized epilepsy and epileptic syndromes, not intractable, without status epilepticus; K70.10 Alcoholic hepatitis without ascites; D75.89 Other specified diseases of blood and blood-forming organs; F17.210 Nicotine dependence, cigarettes, uncomplicated; G62.9 Polyneuropathy, unspecified; Y90.0 Blood alcohol level of less than 20 mg/100 ml; Z82.3 Family history of stroke; Z86.14 Personal history of Methicillin resistant Staphylococcus aureus infection; Z98.890 Other specified postprocedural states
CPT/HCPCS: 36415; 70450; 70551; 80053; 80320; 81001; 82550; 82607; 82746; 82747; 83735; 84100; 84484; 85025; 93005; 93306; 95816; 96361; 96372; 96374; 96375; 96376; 99291

== ENCOUNTER 2020-08-14 09:46 | Inpatient (IN) | payer OTHER ==
[2020-08-14] MEDS ORDERED: SODIUM CHLORIDE 0.9% 1,000 ML IV ONE ×2 (09:54→12:16)
[2020-08-14] MEDS ORDERED: LORazepam 2 MG/ML INJ IV STA (09:54)
[2020-08-14] MEDS ORDERED: SODIUM CHLORIDE 0.9% 500 ML 500 ML IV ONE (09:54)
--- NOTE | 2020-08-14 10:00 | ED ---
General Adult HPI - General Chief complaint: Seizure Stated complaint: Seizure Time Seen by Provider: 08/14/20 09:46 Source: patient, RN notes reviewed, old records reviewed Mode of arrival: EMS Limitations: no limitations - History of Present Illness Initial comments: This is a 49-year-old male with past medical history significant for alcohol withdrawal seizures and alcoholism. Patient states his growth and called EMS because he had a seizure. Patient states he received table in any members talking to paramedics. Patient states she's had this happen before when he stopped drinking he said he only had a couple of drinks yesterday and that may have been the cause. Patient denies any headache patient denies numbness weakness. Patient denies any chest pain difficulty breathing shortness breath per patient denies abdominal pain patient denies nausea vomiting diarrhea. Patient denies any symptoms at this time. Patient states she's been admitted before and worked up for seizures in the past was not put on anything because he believes to be alcohol withdrawal seizures. - Related Data Previous Rx's Medication Instructions Recorded Cyanocobalamin [Vitamin B-12] 1,000 mcg PO DAILY #30 tab 11/14/19 Folic Acid 1 mg PO DAILY #30 tab 11/14/19 Thiamine [Vitamin B-1] 100 mg PO DAILY #30 tab 11/14/19 Allergies Allergy/AdvReac Type Severity Reaction Status Date / Time No Known Allergies Allergy Verified 08/14/20 09:55 Review of Systems ROS Statement: Those systems with pertinent positive or pertinent negative responses have been documented in the HPI. ROS Other: All systems not noted in ROS Statement are negative. Past Medical History Past Medical History: Seizure Disorder Additional Past Medical History / Comment(s): reynault's, carpal tunnel, patient states he used to drink a fifth a day with his friend but he stopped about two weeks ago, patient also states he has had a seizure in the past History of Any Multi-Drug Resistant Organisms: MRSA Date of last positivie culture/infection: 2019 MDRO Source:: left leg Past Surgical History: Orthopedic Surgery Past Psychological History: No Psychological Hx Reported Smoking Status: Current some day smoker Past Alcohol Use History: Daily Past Drug Use History: None Reported General Exam - General Exam Comments Initial Comments: GENERAL: Patient is well-developed and well-nourished. Patient is nontoxic and well- hydrated and is in mild distress. ENT: Neck is soft and supple. No significant lymphadenopathy is noted. Oropharynx is clear. Moist mucous membranes. Neck has full range of motion without eliciting any pain. EYES: The sclera were anicteric and conjunctiva were pink and moist. Extraocular movements were intact and pupils were equal round and reactive to light. Eyelids were unremarkable. PULMONARY: Unlabored respirations. Good breath sounds bilaterally. No audible rales rhonchi or wheezing was noted. CARDIOVASCULAR: There is a regular rate and rhythm without any murmurs gallops or rubs. ABDOMEN: Soft and nontender with normal bowel sounds. SKIN: Skin is clear with no lesions or rashes and otherwise unremarkable. NEUROLOGIC: Patient is alert and oriented x3. Cranial nerves II through XII are grossly intact. Motor and sensory are also intact. Normal speech, volume and content. Symmetrical smile. MUSCULOSKELETAL: Normal extremities with adequate strength and full range of motion. No lower extremity swelling or edema. No calf tenderness. LYMPHATICS: No significant lymphadenopathy is noted PSYCHIATRIC: Normal psychiatric evaluation. Limitations: no limitations Course Vital Signs 08/14/20 08/14/20 09:48 11:16 Temperature 98.9 F Pulse Rate 100 84 Respiratory 18 18 Rate Blood Pressure 152/105 129/100 O2 Sat by Pulse 98 98 Oximetry Medical Decision Making - Medical Decision Making EKG shows normal sinus rhythm at 96 bpm MD interval was 170 QRS is 88 QT interval 350 QTC is 452. Patient's EKG shows no ST segment elevation or depression. Patient she some Ativan while in the emergency department. Patient was without seizure throughout his ED stay. I spoke with the depression agreed to admit the patient admitted the patient wrote admitting orders. - Lab Data Result diagrams: 08/14/20 10:07 08/14/20 10:07 Lab Results 08/14/20 08/14/20 Range/Units 10:07 10:07 WBC 7.1 (3.8-10.6) k/uL RBC 4.17 L (4.30-5.90) m/uL Hgb 15.4 (13.0-17.5) gm/dL Hct 44.1 (39.0-53.0) % MCV 105.8 H (80.0-100.0) fL MCH 36.9 H (25.0-35.0) pg MCHC 34.9 (31.0-37.0) g/dL RDW 12.7 (11.5-15.5) % Plt Count 167 (150-450) k/uL MPV 8.3 Neutrophils % 73 % Lymphocytes % 16 % Monocytes % 8 % Eosinophils % 1 % Basophils % 1 % Neutrophils # 5.1 (1.3-7.7) k/uL Lymphocytes # 1.2 (1.0-4.8) k/uL Monocytes # 0.5 (0-1.0) k/uL Eosinophils # 0.1 (0-0.7) k/uL Basophils # 0.0 (0-0.2) k/uL Macrocytosis Slight Sodium 140 (137-145) mmol/L Potassium 4.2 (3.5-5.1) mmol/L Chloride 100 (98-107) mmol/L Carbon Dioxide 19 L (22-30) mmol/L Anion Gap 21 mmol/L BUN 5 L (9-20) mg/dL Creatinine 0.60 L (0.66-1.25) mg/dL Est GFR (CKD-EPI)AfAm >90 (>60 ml/min/1.73 sqM) Est GFR (CKD-EPI)NonAf >90 (>60 ml/min/1.73 sqM) Glucose 134 H (74-99) mg/dL Calcium 11.1 H (8.4-10.2) mg/dL Magnesium 2.0 (1.6-2.3) mg/dL Total Bilirubin 2.0 H (0.2-1.3) mg/dL AST 252 H (17-59) U/L ALT 79 H (4-49) U/L Alkaline Phosphatase 183 H (38-126) U/L Total Protein 8.4 H (6.3-8.2) g/dL Albumin 5.2 H (3.5-5.0) g/dL Serum Alcohol <10 mg/dL Disposition Clinical Impression: Alcohol abuse, Alcohol withdrawal seizure Disposition: ADMITTED IP TO THIS HOSP Referrals: Gema Jeffers DO [Primary Care Provider] - 1-2 days Time of Disposition: 12:15
[2020-08-14 10:14] LABS: Basophils % (A) 1 %; Eosinophils # (A) 0.1 k/uL (0-0.7); Eosinophils % (A) 1 %; HCT 44.1 % (39.0-53.0); HGB 15.4 gm/dL (13.0-17.5); Lymphocytes # (A) 1.2 k/uL (1.0-4.8); Lymphocytes % (A) 16 %; MCH 36.9 pg (25.0-35.0); MCHC 34.9 g/dL (31.0-37.0); MCV 105.8 fL (80.0-100.0); Macrocytosis Slight; Mean Platelet Volume 8.3; Monocytes # (A) 0.5 k/uL (0-1.0); Monocytes % (A) 8 %; Neutrophils # (A) 5.1 k/uL (1.3-7.7); Neutrophils % (A) 73 %; Platelet Count 167 k/uL (150-450); RBC 4.17 m/uL (4.30-5.90); RDW 12.7 % (11.5-15.5); WBC 7.1 k/uL (3.8-10.6)
[2020-08-14 11:01] LABS: ALT 79 U/L (4-49); AST 252 U/L (17-59); African American GFR (CKD) >90 (>60 ml/min/1.73 sqM); Albumin 5.2 g/dL (3.5-5.0); Alcohol <10 mg/dL; Alkaline Phosphatase 183 U/L (38-126); Anion Gap 21 mmol/L; Blood Urea Nitrogen 5 mg/dL (9-20); Calcium 11.1 mg/dL (8.4-10.2); Carbon Dioxide 19 mmol/L (22-30); Chloride 100 mmol/L (98-107); Glucose 134 mg/dL (74-99); Non-African American GFR(CKD) >90 (>60 ml/min/1.73 sqM); Potassium 4.2 mmol/L (3.5-5.1); Sodium 140 mmol/L (137-145); Total Protein 8.4 g/dL (6.3-8.2)
[2020-08-14] MEDS ORDERED: LORazepam 2 MG/ML INJ IV PRN ×2 (12:15)
[2020-08-14] MEDS ORDERED: THIAMINE 100 MG/ML 2 ML VIAL IM STA (12:15)
[2020-08-14] MEDS: LORazepam 2 MG/ML INJ IV PRN ×2 (13:34→17:41)
[2020-08-14] MEDS: diazePAM 5 MG TAB PO SCH ×2 (15:57→21:05)
[2020-08-14] MEDS: METOPROLOL TARTRATE 12.5 MG TAB PO SCH ×2 (15:57→21:05)
[2020-08-14] MEDS: levETIRAcetam 500 MG TAB PO SCH ×2 (15:57→23:13)
--- NOTE | 2020-08-14 16:09 | P.HPIM ---
History of Present Illness H&P Date: 08/14/20 Chief Complaint: Seizure History of present complaint: This is a 49-year-old patient follows with Dr. Gema Jeffers. She had been a long-standing alcoholic. Patient was admitted here in November 2019 with a seizure related to alcohol. That time patient had an MRI, EEG, 2-D e chocardiogram and all came back to be unremarkable. Was seen by neurologist and decision was made to not discharge him on any antiepileptic drugs at that time. Patient states a few months his cutback on his alcohol intake and has not drinking 2 drinks a day that consist of vodka and cranberry. Patient was noticed this morning by his girlfriend to having a seizure. Was brought in by the EMS. When I saw the patient earlier today patient is having tremors. Restless. Able to answer questions. Patient is smoking few cigarettes a day. Unemployed Review of systems: GEN.: Tired EYES: None HEENT: None NECK: None RESPIRATORY: None CARDIOVASCULAR: None GASTROINTESTINAL: None GENITOURINARY: None MUSCULOSKELETAL: None LYMPHATICS: None HEMATOLOGICAL: None PSYCHIATRY: None NEUROLOGICAL: As above Past medical history to include: Alcohol related seizure, carpal tunnel, alcohol use disorder, Dedrick's, MRSA infection] Social history: Currently not employed. 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 Alcohol history of prolonged years, now down to: Drinks a day. Smokes 3-4 cigarettes a day. Has a girlfriend Family history: Reviewed, noncontributory to presentation Physical examination: VITAL SIGNS: 97.6, 81, 18, 150/90, 98% room air GENERAL: BMI BMI 21.5, laying in bed, somewhat restless with tremors EYES: Pupils equal. Conjunctiva normal. HEENT: External appearance of nose and ears normal, oral cavity grossly normal. NECK: JVD not raised; masses not palpable. HEART: First and second heart sounds are normal; no edema. LUNGS: Respiratory rate normal; decreased breath sounds. ABDOMEN: Soft, nontender, liver spleen not palpable, no masses palpable. PSYCH: Alert and oriented x3; mood and affect anxious. NEUROLOGICAL: Cranial nerves grossly intact; no facial asymmetry, power and sensation grossly intact. Tremors present. LYMPHATICS: No lymph nodes palpable in the axilla and neck INVESTIGATIONS, reviewed in the clinical context: 1.1 hemoglobin 15.4 MCV 105 platelets 167 potassium 4.2 creatinine 0.6 AST 252 ALT 79 Serum alcohol less than 10 Previous testing: [November 2019 2-D echocardiogram, EEG, MRI brain without contrast: All Unremarkable Assessment and plan: -Alcohol related seizure/epilepsy. Patient has a known history of seizure episode in November 2019, had another episode 6-8 weeks ago. And now again today. Start Keppra 500 mg twice daily. Seizure precautions. Seizure pads. -Acute alcohol withdrawal syndrome CIWA scale. Valium 5 mg 3 times a day. Lopressor 12.5 by mouth 3 times a day -Chronic alcohol use disorder Patient will benefit from inpatient rehab -Chronic nicotine dependence cigarette smoker Nicotine patch -Alcoholic hepatitis -Macrocytosis, due to alcoholism Started on Keppra. Seizure precautions. Valium beta darron. Smoke cessation counseling: This was done with the patient. Nicotine patch is being given. More than 3 minutes was spent for this Past Medical History Past Medical History: Seizure Disorder Additional Past Medical History / Comment(s): raynauds, carpal tunnel, 2 mixed drinks a day last drink 08/13/2020 History of Any Multi-Drug Resistant Organisms: MRSA Date of last positivie culture/infection: 2018 MDRO Source:: left leg Past Surgical History: Orthopedic Surgery Past Psychological History: No Psychological Hx Reported Smoking Status: Current some day smoker Past Alcohol Use History: Daily Additional Past Alcohol Use History / Comment(s): 2 mixed drinks a day last drink 08/13/2020, pt states recently cut back alcohol intake Past Drug Use History: None Reported - Past Family History Father Family Medical History: Cancer Mother Family Medical History: No Reported History Medications and Allergies Home Medications Medication Instructions Recorded Confirmed Type Cyanocobalamin [Vitamin B-12] 1,000 mcg PO DAILY #30 tab 11/14/19 08/14/20 Rx Folic Acid 1 mg PO DAILY #30 tab 11/14/19 08/14/20 Rx Thiamine [Vitamin B-1] 100 mg PO DAILY #30 tab 11/14/19 08/14/20 Rx Naproxen Sodium [Aleve] 220 - 440 mg PO DAILY PRN 08/14/20 08/14/20 History Potassium Gluconate 99 mg PO DAILY 08/14/20 08/14/20 History Allergies Allergy/AdvReac Type Severity Reaction Status Date / Time No Known Allergies Allergy Verified 08/14/20 13:20 Physical Exam Vitals: Vital Signs Temp Pulse Pulse Resp BP BP Pulse Ox 08/14/20 13:00 97.6 F 81 18 150/90 98 08/14/20 12:35 88 16 130/95 99 08/14/20 11:16 84 18 129/100 98 08/14/20 09:48 98.9 F 100 18 152/105 98 Intake and Output 08/14/20 08/14/20 08/14/20 06:59 14:59 22:59 Other: Weight 68.039 kg Results CBC & Chem 7: 08/14/20 10:07 08/14/20 10:07 Labs: Abnormal Lab Results - Last 24 Hours (Table) 08/14/20 08/14/20 Range/Units 10:07 10:07 RBC 4.17 L (4.30-5.90) m/uL MCV 105.8 H (80.0-100.0) fL MCH 36.9 H (25.0-35.0) pg Carbon Dioxide 19 L (22-30) mmol/L BUN 5 L (9-20) mg/dL Creatinine 0.60 L (0.66-1.25) mg/dL Glucose 134 H (74-99) mg/dL Calcium 11.1 H (8.4-10.2) mg/dL Total Bilirubin 2.0 H (0.2-1.3) mg/dL AST 252 H (17-59) U/L ALT 79 H (4-49) U/L Alkaline Phosphatase 183 H (38-126) U/L Total Protein 8.4 H (6.3-8.2) g/dL Albumin 5.2 H (3.5-5.0) g/dL Thrombosis Risk Factor Assmnt - Choose All That Apply Any of the Below Risk Factors Present?: Yes Each Factor Represents 1 point: Age 41-60 years Other Risk Factors: Yes Other congenital or acquired thrombophilia - If yes, enter type in comment: Yes Thrombosis Risk Factor Assessment Total Risk Factor Score: 1 Thrombosis Risk Factor Assessment Level: Low Risk
[2020-08-14] MEDS: MULTIVITAMINS, THERA 1 EACH TAB PO SCH (17:20)
[2020-08-14] MEDS: THIAMINE 100 MG TAB PO SCH (17:20)
[2020-08-14] MEDS: NICOTINE 7MG/24HR PATCH TRANSDERM SCH (17:21)
[2020-08-14] MEDS: ENOXAPARIN 40 MG/0.4 ML SYRINGE SQ SCH (17:21)
[2020-08-15] MEDS: levETIRAcetam 500 MG TAB PO SCH ×2 (08:44→21:01)
[2020-08-15] MEDS: ENOXAPARIN 40 MG/0.4 ML SYRINGE SQ SCH (08:44)
[2020-08-15] MEDS: METOPROLOL TARTRATE 12.5 MG TAB PO SCH ×3 (08:44→21:01)
[2020-08-15] MEDS: THIAMINE 100 MG TAB PO SCH ×2 (08:44→15:43)
[2020-08-15] MEDS: MULTIVITAMINS, THERA 1 EACH TAB PO SCH (08:44)
[2020-08-15] MEDS: NICOTINE 7MG/24HR PATCH TRANSDERM SCH (08:44)
[2020-08-15] MEDS: diazePAM 5 MG TAB PO SCH ×3 (08:44→21:01)
--- NOTE | 2020-08-15 23:13 | P.PN ---
Progress Note - Text Progress Note Date: 08/15/20 Chief Complaint: Seizure History of present complaint: This is a 49-year-old patient follows with Dr. Gema Jeffers. She had been a long-standing alcoholic. Patient was admitted here in November 2019 with a seizure related to alcohol. That time patient had an MRI, EEG, 2-D echocardiogram and all came back to be unremarkable. Was seen by neurologist and decision was made to not discharge him on any antiepileptic drugs at that time. Patient states a few months his cutback on his alcohol intake and has not drinking 2 drinks a day that consist of vodka and cranberry. Patient was noticed this morning by his girlfriend to having a seizure. Was brought in by the EMS. When I saw the patient earlier today patient is having tremors. Restless. Able to answer questions. Patient is smoking few cigarettes a day. Unemployed. Today: Feeding better. Eating better. Less tremors. Less anxious. Review of systems: Was done for constitutional, cardiovascular, GI, pulmonary. relevant finding as above Active Medications Diazepam (Diazepam 5 Mg Tab) 5 mg PO TID [facility] Last Admin: 08/15/20 21:01 Dose: 5 mg Documented by: Enoxaparin Sodium (Enoxaparin 40 Mg/0.4 Ml Syringe) 40 mg SQ DAILY [facility] Last Admin: 08/15/20 08:44 Dose: Not Given Documented by: Levetiracetam (Levetiracetam 500 Mg Tab) 500 mg PO Q12HR [facility] Last Admin: 08/15/20 21:01 Dose: 500 mg Documented by: Lorazepam (Lorazepam 2 Mg/Ml Inj) 1 mg IV Q2HR PRN PRN Reason: CIWA 8 or 9 Last Admin: 08/14/20 17:41 Dose: 1 mg Documented by: Lorazepam (Lorazepam 2 Mg/Ml Inj) 1 mg IV Q1HR PRN PRN Reason: CIWA 10 to 15 Last Admin: 08/14/20 15:04 Dose: 1 mg Documented by: Lorazepam (Lorazepam 2 Mg/Ml Inj) 2 mg IV Q10M PRN PRN Reason: CIWA 16 or higher Stop: 08/16/20 12:15 Metoprolol Tartrate (Metoprolol Tartrate 12.5 Mg Tab) 12.5 mg PO TID [facility] Last Admin: 08/15/20 21:01 Dose: 12.5 mg Documented by: Multivitamins (Multivitamins, Thera 1 Each Tab) 1 each PO DAILY [facility] Last Admin: 08/15/20 08:44 Dose: 1 each Documented by: Nicotine (Nicotine 7mg/24hr Patch) 1 patch TRANSDERM DAILY [facility] Last Admin: 08/15/20 08:44 Dose: 1 patch Documented by: Thiamine HCl (Thiamine 100 Mg Tab) 100 mg PO BID-W/MEALS [facility] Last Admin: 08/15/20 15:43 Dose: 100 mg Documented by: Past medical history to include: Alcohol related seizure, carpal tunnel, alcohol use disorder, Dedrick's, MRSA infection] Social history: Currently not employed. 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 Alcohol history of prolonged years, now down to: Drinks a day. Smokes 3-4 cigarettes a day. Has a girlfriend Family history: Reviewed, noncontributory to presentation Physical examination: VITAL SIGNS: 98.3, 72, 18, 140/88, 99% room air GENERAL: BMI BMI 21.5, laying in bed, tremors better EYES: Pupils equal. Conjunctiva normal. HEENT: External appearance of nose and ears normal, oral cavity grossly normal. NECK: JVD not raised; masses not palpable. HEART: First and second heart sounds are normal; no edema. LUNGS: Respiratory rate normal; decreased breath sounds. ABDOMEN: Soft, nontender, liver spleen not palpable, no masses palpable. PSYCH: Alert and oriented x3; mood and affect less anxious INVESTIGATIONS, reviewed in the clinical context: 1.1 hemoglobin 15.4 MCV 105 platelets 167 potassium 4.2 creatinine 0.6 AST 252 ALT 79 Serum alcohol less than 10 Previous testing: [November 2019 2-D echocardiogram, EEG, MRI brain without contrast: All Unremarkable Assessment and plan: -Alcohol related seizure/epilepsy. Patient has a known history of seizure episode in November 2019, had another episode 6-8 weeks ago. Keppra 500 mg twice daily. Seizure precautions. Seizure pads. -Acute alcohol withdrawal syndrome CIWA scale. Lopressor 12.5 by mouth 3 times a day. Decreased Valium 2 mg 3 times a day -Chronic alcohol use disorder Patient will benefit from inpatient rehab -Chronic nicotine dependence cigarette smoker Nicotine patch -Alcoholic hepatitis -Macrocytosis, due to alcoholism Cutback Valium 2 mg 3 times a day. Other medications to continue.
[2020-08-16 07:18] VITALS: BP 137/96; PULSE 59; RESP 16; TEMP 98.1
[2020-08-16] MEDS: NICOTINE 7MG/24HR PATCH TRANSDERM SCH (08:32)
[2020-08-16] MEDS: MULTIVITAMINS, THERA 1 EACH TAB PO SCH (08:32)
[2020-08-16] MEDS: METOPROLOL TARTRATE 12.5 MG TAB PO SCH (08:32)
[2020-08-16] MEDS: levETIRAcetam 500 MG TAB PO SCH (08:32)
[2020-08-16] MEDS: ENOXAPARIN 40 MG/0.4 ML SYRINGE SQ SCH ×2 (08:32→09:10)
[2020-08-16] MEDS: THIAMINE 100 MG TAB PO SCH (08:32)
[2020-08-16] MEDS ORDERED: diazePAM 2 MG TAB PO SCH (09:00)
--- NOTE | 2020-08-16 23:29 | P.DS ---
Providers Date of admission: 08/14/20 12:16 Expected date of discharge: 08/16/20 Attending physician: Anupam Mcgrath Primary care physician: Gema Jeffers [facility] Course: Chief Complaint: Seizure History of present complaint: This is a 49-year-old patient follows with Dr. Gema Jeffers. She had been a long-standing alcoholic. Patient was admitted here in November 2019 with a seizure related to alcohol. That time patient had an MRI, EEG, 2-D echocardiogram and all came back to be unremarkable. Was seen by neurologist and decision was made to not discharge him on any antiepileptic drugs at that time. Patient states a few months his cutback on his alcohol intake and has not drinking 2 drinks a day that consist of vodka and cranberry. Patient was noticed this morning by his girlfriend to having a seizure. Was brought in by the EMS. When I saw the patient earlier today patient is having tremors. Restless. Able to answer questions. Patient is smoking few cigarettes a day. Unemployed. Admitted with alcohol-related epilepsy and alcohol withdrawal syndrome. Started on Keppra, Valium CIWA scale. Responded well. August 15: Feeding better. Eating better. Less tremors. Less anxious. August 16: Feeling much better. Eating better. Valium discontinued. Had a lengthy talk with the patient about his addiction. Will take naltrexone. Questions answered. Follow-up in neurology. No driving. Discussion and discharge planning more than 35 minutes Past medical history to include: Alcohol related seizure, carpal tunnel, alcohol use disorder, Dedrick's, MRSA infection] Social history: Currently not employed. 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 Alcohol history of prolonged years, now down to: Drinks a day. Smokes 3-4 cigarettes a day. Has a girlfriend Family history: Reviewed, noncontributory to presentation Physical examination: VITAL SIGNS: 98.1, 59, 16, 137/96, 96% room air GENERAL: Sitting of eczema bed, comfortable EYES: Pupils equal. Conjunctiva normal. HEENT: External appearance of nose and ears normal, oral cavity grossly normal. NECK: JVD not raised; masses not palpable. HEART: First and second heart sounds are normal; no edema. LUNGS: Respiratory rate normal; decreased breath sounds. ABDOMEN: Soft, nontender, liver spleen not palpable, no masses palpable. PSYCH: Alert and oriented x3; mood and affect less anxious INVESTIGATIONS, reviewed in the clinical context: White count 7.1 hemoglobin 15.4 MCV 105 platelets 167 potassium 4.2 creatinine 0.6 AST 252 ALT 79 Serum alcohol less than 10 Previous testing: [November 2019 2-D echocardiogram, EEG, MRI brain without contrast: All Unremarkable Assessment and plan: -Alcohol related seizure/epilepsy. Patient has a known history of seizure episode in November 2019, had another episode 6-8 weeks ago. Keppra 500 mg twice daily. Seizure precautions. Seizure pads. Follow-up with neurology. No driving. Seizure precautions. -Acute alcohol withdrawal syndrome CIWA scale. Lopressor 12.5 by mouth 3 times a day-discontinued. Decreased Valium 2 mg 3 times a day-discontinued -Chronic alcohol use disorder Naltrexone. Consult -Chronic nicotine dependence cigarette smoker Nicotine patch -Alcoholic hepatitis -Macrocytosis, due to alcoholism Disposition: Home Plan - Discharge Summary Discharge Rx Participant: Yes New Discharge Prescriptions: New Nicotine 7Mg/24Hr Patch [Habitrol] 1 patch TRANSDERM DAILY #30 patch levETIRAcetam [Keppra] 500 mg PO Q12HR #30 tab Multivitamins, Thera [Multivitamin (formulary)] 1 each PO DAILY #30 tab Naltrexone HCl [Revia] 50 mg PO DAILY #30 tablet Continue Folic Acid 1 mg PO DAILY #30 tab Thiamine [Vitamin B-1] 100 mg PO DAILY #30 tab Cyanocobalamin [Vitamin B-12] 1,000 mcg PO DAILY #30 tab Naproxen Sodium [Aleve] 220 - 440 mg PO DAILY PRN PRN Reason: shoulder pain Discontinued Potassium Gluconate 99 mg PO DAILY Discharge Medication List Cyanocobalamin [Vitamin B-12] 1,000 mcg PO DAILY #30 tab 11/14/19 [Rx] Folic Acid 1 mg PO DAILY #30 tab 11/14/19 [Rx] Thiamine [Vitamin B-1] 100 mg PO DAILY #30 tab 11/14/19 [Rx] Naproxen Sodium [Aleve] 220 - 440 mg PO DAILY PRN 08/14/20 [History] Multivitamins, Thera [Multivitamin (formulary)] 1 each PO DAILY #30 tab 08/16/20 [Rx] Naltrexone HCl [Revia] 50 mg PO DAILY #30 tablet 08/16/20 [Rx] Nicotine 7Mg/24Hr Patch [Habitrol] 1 patch TRANSDERM DAILY #30 patch 08/16/20 [Rx] levETIRAcetam [Keppra] 500 mg PO Q12HR #30 tab 08/16/20 [Rx] Follow up Appointment(s)/Referral(s): Gema Jeffers DO [Primary Care Provider] - 08/19/20 3:00 pm Truman Bnada MD [STAFF PHYSICIAN] - 1 Week (Office to call you and make appointment. ) Patient Instructions/Handouts: Alcohol Withdrawal (DC) Activity/Diet/Wound Care/Special Instructions: seizure precautions and no driving till ok with neurology Discharge Disposition: HOME SELF-CARE
== END 2020-08-16 13:58 | disposition home or self-care (01) | DRG 101 ==
LOC: EC 09:46 → 4SSUR 12:16
PROVIDERS: ADMIT Hospitalist; ATTEND Hospitalist
PROC: HZ2ZZZZ Detoxification Services for Substance Abuse Treatment (ICD-10-PCS; principal; 2020-08-14)
DX: G40.509 Epileptic seizures related to external causes, not intractable, without status epilepticus (principal); F10.231 Alcohol dependence with withdrawal delirium; K70.10 Alcoholic hepatitis without ascites; D75.89 Other specified diseases of blood and blood-forming organs; F17.210 Nicotine dependence, cigarettes, uncomplicated; F32.9 Major depressive disorder, single episode, unspecified; I73.00 Raynaud's syndrome without gangrene; Z79.899 Other long term (current) drug therapy; Z86.14 Personal history of Methicillin resistant Staphylococcus aureus infection
CPT/HCPCS: 36415; 80053; 80320; 83735; 85025; 93005; 96361; 96374; 99285

== ENCOUNTER → 2022-06-14 | Outpatient (CLI) | payer OTHER ==
--- NOTE | 2022-06-14 15:39 | P.SLEEP ---
History of Present Illness DATE: 06/14/2022 CONSULTATION/NEW PATIENT EVALUATION HISTORY OF PRESENT ILLNESS/SLEEP-WAKE EVALUATION: 51 year old gentleman had been evaluated in the sleep center for possible obstructive sleep apnea hypopnea syndrome. Patient has history of obstructive sleep apnea diagnosed about 13 years ago in another institution. At that time CPAP therapy was not started. SLEEP SCHEDULE: Usually sleep schedule from 5-8 PM until 3 AM. FALLING ASLEEP: Patient has difficulties with falling asleep, has TV set and bedroom. DURING SLEEP: Patient has loud snoring, witnessed episodes of stop breathing during the sleep. Positive history of restless leg symptoms and periodic limb movements. Positive history of out of dream movements. Patient usually sleeps on the side and stomach position with multiple awakenings from sleep. No clear history of hypnogogical hallucinations, sleep paralysis, or cataplexy. Positive history of grinding teeth, panic attacks, heartburn, gasping for air and sweating during the sleep. DURING THE DAY/WAKE STATE: In the morning patient wake up tired, has difficulties to pay attention, falling asleep during the day. Positive history of problems with memory, concentration, depression, anxiety, sexual dysfunction. [place] sleepiness scale is in very high range of 19. Patient may take several naps in the day. PAST MEDICAL HISTORY: Depression, anxiety, peripheral neuropathy with dropping feet bilaterally, hypertension in medical offices. PAST SURGICAL HISTORY: Left shoulder dislocation, right heel fracture. MEDICATIONS: Escitalopram 10 mg once a day. SOCIAL HISTORY: Positive for smoking for about 30 pack years quit 1.5 year ago, alcohol consumption none for last 2.5 years. FAMILY HISTORY: Stroke, heart problems, arthritis. REVIEW OF SYSTEMS: Loud snoring, multiple awakenings from sleep, sleepiness during the day, out of dream movements. No fevers. No double vision. No recent chest pain. No shortness of breath. No abdominal pain. No bleeding episodes. No blood in urine. No seizure episodes. PHYSICAL EXAMINATION: GENERAL: A pleasant patient without any distress. VITAL SIGNS: BP 158/100 date , HR 57 , RR 16 , weight 164.8 pounds, height 5 foot 10 inches, body mass index 23.5 . HEENT: PERRLA, EOMI. Evaluation of oropharynx showed tongue protrudes midline, low position of soft palate Mallampati 4. NECK: Supple. No JVD. Thyroid is not palpable. 16.5 inches in circumference. LUNGS: Clear to percussion and to auscultation. Good air exchange. No wheezing or rhonchi. HEART: S1, S2 regular. No murmurs, gallops or rubs. ABDOMEN: Soft and nontender. Bowel sounds are present. No organomegaly appreciated. EXTREMITIES: No clubbing or cyanosis. Dropping feet bilaterally. FULL TIME BABYSITTER: Awake, alert, and oriented x3. Cranial nerves 2 to 7 intact. There is no fasciculation or atrophy noted. No focal deficits observed. ASSESSMENT: 1. Loud snoring, witnessed episodes of stop breathing during the sleep, extremely low position of soft palate Mallampati 4, significant excessive daytime sleepiness [place] Sleepiness Scale is 19, history of obstructive sleep apnea in the past. Obstructive sleep apnea hypopnea syndrome. 2. Out of dream movements, possibly REM sleep behavior disorder. 3. Restless leg symptoms. 4. Possible periodic limb movements. 5 history of neuropathy with dropping feet bilaterally. 6 . Hypertension in the office. 7. History of depression. 8. History of anxiety. 9 . Status post left shoulder dislocation. 10. Status post right heel fracture. 11. Significant excessive daytime sleepiness with [place] Sleepiness Scale of 19 and possibly REM sleep behavior disorder dictated necessity to include to narcolepsy and differential diagnosis. PLAN: 1. Polysomnography for evaluation of patient's breathing during sleep and also to check for possible REM sleep behavior disorder and periodic limb movements. 2. CPAP/BiPAP titration if sleep study confirms obstructive sleep apnea- hypopnea syndrome. 3. Preferable position during sleep on the side. 4. No driving if patient feels any sleepiness. Patient is aware of civil and criminal liability for unsafe driving. 5. Sleep hygiene with regular sleep time for at least 7.5-8 hours. Thank you very much for referring this patient for consultation. Sincerely, Doug Lloyd MD, PhD, FAASM. Diplomat of [place] [employer], Sleep Medicine Board by [place] [employer] [place] [employer] [facility] [place] Past Medical History Past Medical History: Seizure Disorder Additional Past Medical History / Comment(s): raynauds, carpal tunnel, 2 mixed drinks a day last drink 08/13/2020 History of Any Multi-Drug Resistant Organisms: MRSA Date of last positivie culture/infection: 2019 MDRO Source:: left leg Past Surgical History: Orthopedic Surgery Past Psychological History: No Psychological Hx Reported Smoking Status: Current some day smoker Past Alcohol Use History: Daily Additional Past Alcohol Use History / Comment(s): 2 mixed drinks a day last drink 08/13/2020, pt states recently cut back alcohol intake Past Drug Use History: None Reported - Past Family History Father Family Medical History: Cancer Mother Family Medical History: No Reported History Medications and Allergies Home Medications Medication Instructions Recorded Confirmed Type Cyanocobalamin [Vitamin B-12] 1,000 mcg PO DAILY #30 tab 11/14/19 08/14/20 Rx Folic Acid 1 mg PO DAILY #30 tab 11/14/19 08/14/20 Rx Thiamine [Vitamin B-1] 100 mg PO DAILY #30 tab 11/14/19 08/14/20 Rx Naproxen Sodium [Aleve] 220 - 440 mg PO DAILY PRN 08/14/20 08/14/20 History Multivitamins, Thera [Multivitamin 1 each PO DAILY #30 tab 08/16/20 Rx (formulary)] Naltrexone HCl [Revia] 50 mg PO DAILY #30 tablet 08/16/20 Rx Nicotine 7Mg/24Hr Patch [Habitrol] 1 patch TRANSDERM DAILY #30 patch 08/16/20 Rx levETIRAcetam [Keppra] 500 mg PO Q12HR #30 tab 08/16/20 Rx Allergies Allergy/AdvReac Type Severity Reaction Status Date / Time No Known Allergies Allergy Verified 08/14/20 13:20 Sleep Note - Sleep Note Sleep Note: Temperature: Pulse Rate: Respiratory Rate: Blood Pressure: SpO2: Height: Weight: BMI: Neck Circumference:
== END | disposition home or self-care (01) ==
LOC: SLEEP 14:45
PROVIDERS: ATTEND Internal Medicine
DX: R06.83 Snoring (principal); G47.10 Hypersomnia, unspecified; G25.81 Restless legs syndrome; I10 Essential (primary) hypertension; F32.A Depression, unspecified; F41.9 Anxiety disorder, unspecified; Z86.69 Personal history of other diseases of the nervous system and sense organs; F17.210 Nicotine dependence, cigarettes, uncomplicated; G62.9 Polyneuropathy, unspecified; G47.61 Periodic limb movement disorder; Z98.890 Other specified postprocedural states
CPT/HCPCS: 99211